=== PATIENT | female | born 2000 | race Caucasian/White ===

== ENCOUNTER 2019-07-17 22:39 | Emergency (ER) | payer OTHER, MEDICAID, SELFPAY ==
[2019-07-17 22:47] VITALS: BP 154/94; PULSE 89; TEMP 36.7; O2SAT 99; BMI 171.7
--- NOTE | 2019-07-17 22:56 | DI.US.S_ITS ---
PROCEDURE: US ABDOMEN LIMITED INDICATIONS: severe RUQ pain with radiation to her back TECHNIQUE: Real-time focused scanning was performed of the right upper quadrant of the abdomen, with image documentation. COMPARISON: None. FINDINGS: The liver is normal in size and echotexture. Normal gallbladder without stones or sludge. Normal wall thickness and 1 mm. No pericholecystic fluid or sonographic Espinoza's sign. Extrahepatic common duct is nondilated at 4 mm. Visible portion of the pancreas is normal without ductal dilatation or peripancreatic fluid. No free fluid in the right upper quadrant. IMPRESSION: Normal sonographic exam of the right upper quadrant. Dictated by: Verena Pritchard M.D. on 07/18/2019 at 8:36 Approved by: Verena Pritchard M.D. on 07/18/2019 at 8:37
[2019-07-17] MEDS: SODIUM CHLORIDE 0.9% 1,000 ML 1000 ML IV (23:04)
[2019-07-17 23:13] LABS: Add Manual Diff / Slide Review NO; Basophils Absolute Auto 0 /uL (0-100); Basophils Percent Auto 0.8 % (0-2); Eosinophils Absolute Auto 200 /uL (0-450); Eosinophils Percent Auto 3.4 % (2-4); Hematocrit 36.8 % (36-46); Hemoglobin 12.6 g/dL (12.0-16.0); Lymphocytes Absolute Auto 2300 /uL (1100-4500); Lymphocytes Percent Auto 40.2 % (25-40); Mean Corpuscular HGB Conc 34.4 % (30-36); Mean Corpuscular Volume 87.2 fL (80-100); Monocytes Absolute Auto 400 /uL (0-900); Monocytes Percent Auto 7.4 % (3-14); Neutrophils Absolute Auto 2800 /uL (1500-7000); Neutrophils Percent Auto 48.2 % (50-75); Platelet Count 356 X10^3/uL (150-400); Red Blood Cell Count 4.22 X10^6/uL (4.0-5.2); Red Cell Distribution Width 12.8 % (11.6-14.8); White Blood Cell Count 5.7 X10^3/uL (4.5-11.0)
[2019-07-17 23:15] VITALS: BP 131/70; PULSE 70; RESP 16; O2SAT 100
[2019-07-17 23:19] LABS: Alanine Aminotransferase 11 IU/L (<35); Albumin 4.4 g/dL (3.5-5.0); Albumin Globulin Ratio 1.3 (1.0-2.8); Alkaline Phosphatase 77 U/L (38-126); Aspartate Aminotransferase 22 IU/L (14-36); BUN Creatinine Ratio 18.6 (6-22); Bilirubin Total 0.4 mg/dL (0.2-1.3); Blood Urea Nitrogen 8 mg/dL (7-17); Calcium 9.7 mg/dL (8.4-10.2); Carbon Dioxide 26 mmol/L (22-32); Chloride 105 mmol/L (98-107); Estimated Glomerular Filt Rate > 60.0 mL/min (>60); Globulin 3.5 g/dL (1.7-4.1); Glucose 94 mg/dL (70-100); HEMOLYSIS < 15 (0-50); Lipase 67 U/L (23-300); Potassium 3.6 mmol/L (3.4-5.1); Sodium 138 mmol/L (137-145); Total Protein 7.9 g/dL (6.3-8.2)
--- NOTE | 2019-07-17 23:51 | ED_ITS ---
HPI - Abdominal Pain General Chief Complaint: Abdominal Pain Stated Complaint: issue with galbladder, nausea, vomiting Time Seen by Provider: 07/17/19 22:40 Source: patient Mode of arrival: Ambulatory Limitations: no limitations History of Present Illness HPI narrative: 18F non smoker with chronic persistent generalized abdominal pain presents for repeat evaluation. She denies any new symptoms but was encouraged t o some see us due to her telemedicine evaluation. She's had multiple evaluations at various emergency departments and has had labs, ultrasounds, CTs etc without findings. She has existing appointments with local OB but that has been put on hold due to the current COVID-19 pandemic. She was having ongoing pain and pursued a telemedicine appointment and the provider asked her to press on her RUQ which caused pain. She was then instructed to present to the emergency department for evaluation of right upper quadrant pain. She denies provocation, palliation or radiation. She states her symptoms have been present for quite some time as stated above. She denies nausea, vomiting or diarrhea. She denies any change with food or drink. She denies any change in bowel habits such as constipation or diarrhea. She denies dysuria, frequency or urgency. She denies any significant dietary change or international travel. She denies any history of bowel problems in the family such as Crohn's, gluten sensitivity or irritable bowel syndrome. MD complaint: abdominal pain Onset (ago): month(s) Pain Consistency: constant Location: diffuse Severity: moderate Quality: cramping and aching Relieving factors: nothing Exacerbating factors: nothing Associated symptoms: denies other symptoms Related Data Allergies Allergy/AdvReac Type Severity Reaction Status Date / Time No Known Drug Allergies Allergy Verified 07/17/19 22:51 Review of Systems Constitutional Constitutional: Denies chills, Denies fatigue, Denies fever(s), Denies frequent falls, Denies lethargy and Denies weakness Eyes Eyes: Denies change in vision, Denies eye discharge, Denies irritation and Denies loss of vision ENT Ears, Nose, Mouth, and Throat: Denies change in voice, Denies dizziness, Denies neck pain, Denies sore throat and Denies throat swelling Cardiovascular Cardiovascular: Denies chest pain, Denies irregular heart rhythm, Denies lightheadedness, Denies palpitations, Denies dyspnea, Denies dyspnea on exertion and Denies orthopnea Respiratory Respiratory: Denies cough, Denies dyspnea, Denies dyspnea on exertion and Denies wheezing Gastrointestinal Gastrointestinal: Reports abdominal pain, Denies change in bowel habits, Denies diarrhea, Denies nausea and Denies vomiting Comments: pelvic pain Genitourinary Genitourinary: Denies hematuria, Denies flank pain, Denies urinary incontinence and Denies urinary urgency Musculoskeletal Musculoskeletal: Denies back pain, Denies muscle weakness, Denies neck pain, Denies numbness and Denies tingling Integumentary/Breasts Skin/Breast: Denies pruritus, Denies erythema, Denies rash and Denies wounds Neurologic Neurologic: Denies behavioral changes, Denies confusion, Denies dizziness, Denies frequent falls, Denies loss of vision, Denies numbness, Denies tingling and Denies weakness Psychiatric Psychiatric: Denies anxiety, Denies behavioral changes, Denies confusion, Denies depression, Denies homicidal ideation and Denies suicidal ideation Endocrine Endocrine: Denies fatigue, Denies flushing and Denies palpitations Hematologic/Lymphatic Hematologic/Lymphatic: Denies easy bruising Allergic/Immunologic Allergic/Immunologic: Denies urticaria, Denies throat swelling and Denies wheezing Patient History Social History Smoking Status: Never smoker Smoking Status: Never smoker Substance Use Type: does not use Exam Narrative Exam Narrative: GENERAL: [18] year old patient appears stated age. Well- nourished, well-developed patient, in mild distress. HEAD: Atraumatic. Normocephalic. EYES: Pupils equal round and reactive. Extraocular motions intact. No scleral icterus. No injection or drainage. ENT: Nose without bleeding, purulent drainage. Throat without erythema, tons illar hypertrophy or exudate. Airway patent. NECK: Trachea midline. Non tender CARDIOVASCULAR: Regular rate and rhythm without murmurs, gallops, or rubs. RESPIRATORY: Clear to auscultation. Breath sounds equal bilaterally. No wheezes, rales, or rhonchi. GASTROINTESTINAL: Abdomen soft, generally tender. Notably in RUQ. No guarding or rebound EXTREMITIES: No edema or joint tenderness. BACK: Nontender without deformity or crepitance. No flank tenderness. NEURO: AOx3. SKIN: No rash or erythema of visible areas Initial Vital Signs Initial Vital Signs: Vital Signs Temperature 98.0 F 07/17/19 22:47 Pulse Rate 89 07/17/19 22:47 Blood Pressure 154/94 H 07/17/19 22:47 Pulse Oximetry 99 07/17/19 22:47 Course Orders Ordered: ED Orders 07/17/19 22:55 Complete Blood Count AUTO DIFF Stat Comprehensive Metabolic Panel Stat Lipase Stat 07/17/19 22:56 US abdomen limited Stat Discontinued Medications Sodium Chloride (Normal Saline 0.9%) 1,000 mls @ 1,000 mls/hr IV BOLUS ONE Stop: 07/17/19 23:53 Last Infusion: 07/18/19 00:17 Dose: 0 mls/hr Documented by: Admin: 07/17/19 23:04 Dose: 1,000 mls/hr Documented by: DEE Vital Signs Vital signs: Vital Signs - 8 hr 07/17/19 22:47 07/17/19 23:15 07/17/19 23:54 Temperature 98.0 F Pulse Rate 89 70 62 Respiratory Rate 16 16 Blood Pressure 154/94 H Blood Pressure [Right Arm] 131/70 94/52 L Pulse Oximetry 99 100 100 MDM - Abdominal Pain Lab Data Result diagrams: 07/17/19 22:55 07/17/19 22:55 Labs: Lab Results 07/17/19 07/17/19 07/17/19 Range/Units 22:55 22:55 22:55 WBC 5.7 (4.5-11.0) X10^3/uL RBC 4.22 (4.0-5.2) X10^6/uL Hgb 12.6 (12.0-16.0) g/dL Hct 36.8 (36-46) % MCV 87.2 (80-100) fL MCH 30.0 (26-34) PG MCHC 34.4 (30-36) % RDW 12.8 (11.6-14.8) % Plt Count 356 (150-400) X10^3/uL Neut % (Auto) 48.2 L (50-75) % Lymph % (Auto) 40.2 H (25-40) % [place] % (Auto) 7.4 (3-14) % Eos % (Auto) 3.4 (2-4) % Baso % (Auto) 0.8 (0-2) % Neut # (Auto) 2800 (6751-9021) /uL Lymph # (Auto) 2300 (7523-5405) /uL [place] # (Auto) 400 (0-900) /uL Eos # (Auto) 200 (0-450) /uL Baso # (Auto) 0 (0-100) /uL Sodium 138 (137-145) mmol/L Potassium 3.6 (3.4-5.1) mmol/L Chloride 105 (98-107) mmol/L Carbon Dioxide 26 (22-32) mmol/L BUN 8 (7-17) mg/dL Creatinine 0.43 L (0.52-1.04) mg/dL Estimated GFR > 60.0 (>60) mL/min BUN/Creatinine Ratio 18.6 (6-22) Glucose 94 (70-100) mg/dL Calcium 9.7 (8.4-10.2) mg/dL Total Bilirubin 0.4 (0.2-1.3) mg/dL AST 22 (14-36) IU/L ALT 11 (<35) IU/L Alkaline Phosphatase 77 (38-126) U/L Total Protein 7.9 (6.3-8.2) g/dL Albumin 4.4 (3.5-5.0) g/dL Globulin 3.5 (1.7-4.1) g/dL Albumin/Globulin Ratio 1.3 (1.0-2.8) Lipase 67 (23-300) U/L Point of care testing: Point of Care Testing Test Results Negative Urine Dip Bedside Urine Glucose Negative Bedside Urine Bilirubin - Negative Bedside Urine Ketone - Negative Urine Specific [place] 1.015 Bedside Urine Occult Blood - Negative Bedside Urine pH 6.0 Bedside Urine Protein - Negative Bedside Urine Urobilinogen +/- 1mg Bedside Urine Nitrite - Negative Bedside Urine Leukocytes - Negative Esterase Imaging Data US - abdomen: Radiologist's Impression: No acute disease in RUQ. Normal gallbladder, no biliary ductal dilatation MDM Narrative Medical decision making narrative: Patient with with chronic abdominal/pelvic pain and multiple large workups presents without any new signs or symptoms. Exam is consistent with priors. Labs and imaging are reassuring. We discussed more advanced imaging but agreed that given the chronicity and reassuring labs that it was unlikely to show anything new or change disposition. With shared decision making we elect to forego imaging. Patient is in full agreement. She has been given return precautions and has had her questions answered to her apparent satisfaction. Discharge Plan Departure Patient Disposition: Home Clinical Impression: Abdominal pain, chronic, generalized Discharge Date/Time: 07/18/19 00:16 Instructions: Chronic Pelvic Pain-Female Activity Restrictions/Additional Instructions: *You have been diagnosed with [ chronic abdominal pain ] *What to do: *Take medications as directed *Follow up with your primary care provider in 2-3 days, call for an appointment. Let them know you were seen in the Emergency Department and that we ask that you be seen in follow up *Return to ER if you should have any new, worsening or concerning symptoms, such as [ worsening pain, vomiting, fever > 101F, or other bothersome symptoms] Referrals: Kael Mclean MD [Physician] -
[2019-07-17 23:54] VITALS: BP 94/52; PULSE 62; RESP 16; O2SAT 100
== END 2019-07-18 00:16 | disposition home or self-care (01) ==
PROVIDERS: Emergency Provider Emergency Medicine
DX: R10.84 Generalized abdominal pain (principal)
CPT/HCPCS: 36415; 76705; 80053; 81003; 81025; 83690; 85025; 96360; 99284